=== PATIENT | female | born 1955 | race Caucasian/White ===

== ENCOUNTER 2017-11-07 21:49 | Emergency (ER) | payer OTHER ==
[~2017-11-07] VITALS: Ht 160 cm; Wt 90.7 kg
[~2017-11-07 21:49] MED LIST: ALBUTEROL2.5 MG/31 INH; AMBIEN5 MG PO; AMOXICILLIN500 M1 PO; ANTIVERT25 MG PO; ASPIR 8181 MG; ASPIR 8181 MG PO; AUGMENTIN 875875 MG PO; CIPRO PO; CRESTOR10 MG PO; FLAGYL500 MG PO; FLEXERIL; HYDROCODONE-AP1 EAC6; HYDROXYCHLOROQ200 M1 PO; LEVOTHROID PO; LOPRESSOR25 PO; LOVASTATIN 20 M20 MG PO; MEDROLDOSEPACK PO; NAPROSYN500 MG PO; PAXIL10 MG; PREDNISONE50 MG PO; PRINIVIL20 MG; PROAIR HFA8.5 GM IH; PROMETH-CODEIN 65 ML PO; PROMETHAZINE D480 ML PO; PROMETHAZINE-C120 ML PO; TESSALON PERLE100 MG PO; VERAPAMIL HCL120 M1 PO; VITAMIN D1000 UNI1 PO; ZOCOR40 MG; ZPAK PO; [UNRECOGNIZED DRUG - OTHER]
[2017-11-07] MEDS ORDERED: FLEXERIL (22:07)
[2017-11-07] MEDS ORDERED: NORCO 5-325 TA1 EACH PO (22:08)
[2017-11-07] MEDS ORDERED: HYDROCODONE-ACE15 ML PO (22:58)
[2017-11-07 23:20] VITALS: BP 142/67
== END 2017-11-07 23:15 | disposition home or self-care (01) ==
LOC: M.ERS 21:49
DX: J06.9 Acute upper respiratory infection, unspecified (principal); I10 Essential (primary) hypertension; K21.9 Gastro-esophageal reflux disease without esophagitis; M19.90 Unspecified osteoarthritis, unspecified site; M79.7 Fibromyalgia; G25.81 Restless legs syndrome; E78.00 Pure hypercholesterolemia, unspecified; J44.9 Chronic obstructive pulmonary disease, unspecified; F32.9 Major depressive disorder, single episode, unspecified; Z91.041 Radiographic dye allergy status

== ENCOUNTER 2018-01-18 18:34 | Inpatient (IN) | payer OTHER ==
[~2018-01-18] VITALS: Ht 160 cm; Wt 83.9 kg
[~2018-01-18 18:34] MED LIST changes: +FLEXERIL PO; +HYDROCODONE-ACE15 ML PO; -LEVOTHROID PO; +NORCO 5-325 TA1 EACH PO; -PRINIVIL20 MG; +PRINIVIL20 MG PO; +SYNTHROID50 MCG PO
[2018-01-18 18:37] VITALS: BP 143/108
[2018-01-18 19:15] LABS: ABSOLUTE BASOPHILS 0.1 thou/uL (0.0-0.2); ABSOLUTE LYMPHOCYTES 2.3 thou/uL (0.8-5.3); ABSOLUTE MONOCYTES 0.9 thou/uL (0.0-1.2); ABSOLUTE NEUTROPHILS 6.8 thou/uL (1.6-8.1); BASOPHILS 1.5 %; EOSINOPHILS 0.4 %; HEMATOCRIT 35.4 % (37.0-47.0); HEMOGLOBIN 11.8 gm/dL (12.0-15.0); LYMPHOCYTES 22.4 %; MCH 28.7 pg (26.0-34.0); MCHC 33.2 g/dL (28.0-37.0); MCV 86.3 fL (80.0-100.0); MONOCYTES 8.7 %; MPV 7.8 fl. (7.2-11.1); NUCLEATED RBCS 0 /100WBC; PLATELET COUNT* 291 thou/uL (150-400); RDW-CV 14.9 % (10.5-14.5); WBC 10.1 thou/uL (4.0-11.0)
[2018-01-18 19:22] LABS: CALCIUM 9.5 mg/dL (8.5-10.1); POTASSIUM 3.5 mmol/L (3.5-5.1)
[2018-01-18 19:24] LABS: INR 1.1; PROTIME 10.9 Seconds (9.20-11.50)
[2018-01-18 19:33] LABS: ALBUMIN 3.6 g/dL (3.4-5.0); TOTAL BILIRUBIN 0.4 mg/dL (<0.1-1.0); TOTAL PROTEIN 8.1 g/dL (6.4-8.2); TROPONIN-I LEVEL 0.35 ng/mL (<0.06)
[2018-01-18 20:50] VITALS: BP 123/76
[2018-01-18 21:00] VITALS: BP 108/75
[2018-01-18] MEDS ORDERED: PROZAC20 MG PO (23:08)
[2018-01-19] VITALS: BP 129/69
--- NOTE | 2018-01-19 03:50 | NUR ---
PT ARRIVED FROM ER AROUND 2100. ASSESSMENT COMPLETED CHARTED. ABLE TO MAKE NEEDS KNOWN. PT AT BEDSIDE DURING ADMISSION BUT WENT HOME SHORTLY AFTER. MEDS RESTARTED, PAPERWORK SIGNED, AND ADMISSION COMPLETED. PT RESTING ON AND OFF, C/O SLIGHT CHEST PRESSURE. 2L OF O2 ON. NPO AT MIDNIGHT FOR CARDIOLOGY CONSULT. WILL CONTINUE TO MONITOR.
[2018-01-19 04:00] VITALS: BP 104/60
[2018-01-19 08:00] VITALS: BP 109/51
--- NOTE | 2018-01-19 15:38 | EKG ---
[place] [address] ELECTROCARDIOGRAM REPORT Name: ROSANGELA STERN Room: [address] ADM IN M.R.#: [id number] Admission: 01/18/18 Attend Phys: Tashia Vasquez Discharge: Date of : 57 Report #: [id number] THIS REPORT FOR: //name// [facility] ED Test Date: 2018-01-18 Test Time: 18:40:19 Pat Name: ROSANGELA STERN Department: Room: [facility] Gender: F Customer Engagement Representative: POPPY : 1955 Requested By: Edward Solis Order Number: [id number] MD: Hai Do Measurements Intervals Eldridge Rate: 81 P: -17 IN: 111 QRS: 75 QRSD: 119 T: 122 QT: 455 QTc: 529 Interpretive Statements Sinus rhythm Borderline short IN interval Repol abnrm, severe global ischemia (LM/MVD) Compared to ECG 10/11/2016 09:40:45 Early repolarization now present Possible ischemia now present T-wave abnormality no longer present Electronically Signed On 01-19-2018 15:38:49 EVALUATION ANALYST by Hai Do [email or web address] <ELECTRONICALLY SIGNED> By: Hai Do MD, FACC 01/19/18 1538 1840 1840 Hai Do MD, FACC /EPI
[2018-01-19 16:00] VITALS: BP 126/65
--- NOTE | 2018-01-19 16:45 | NUR ---
PT SOMEWHAT PROGRESSING TOWARDS THIS SHIFT. CARDIOLOGY CONSULTED AND ANTICIPATE CARDIAC CATH TOMORROW. ECHO TO BE COMPLETED. PT HAS TOLERATED REGULAR DIET SINCE CARDIOLOGY CONSULT. WILL BE NPO AFTER MIDNIGHT FOR CATH PROCEDURE TOMORROW. PULMONOLOGY CONSULTED THIS SHIFT. CT CHEST OBTAINED, REFER TO RESULTS. PT STARTED ON IV ABTS. NO OTHER CONCERNS AT THIS TIME. CLWR. WCTM.
[2018-01-19 19:45] VITALS: BP 137/67
[2018-01-19 22:05] LABS: GLYCOHEMOGLOBIN (HGB A1C) 5.3 % (4.8-5.6)
[2018-01-20] VITALS (14 sets, daily range): BP systolic 104–134; BP diastolic 51–84
--- NOTE | 2018-01-20 04:27 | NUR ---
PT RESTED WELL. PAIN RELIEVED WITH TYLENOL WITH GOOD RESULT. PT REPORTS SOME WEAKNESS. PLANS FOR CATH PROCEDURE TODAY. REMAINS SR ON MONITOR. LUNGS ARE COURSE WITH NON PRODUCTIVE COUGH. PT IS ON RA. VSS. ASSESSMENT UNCHANGED. HAS REMAINED NPO SINCE MN. SAFETY PRECAUTIONS IN PLACE. CALL LIGHT IN REACH. PERFORMED HOURLY ROUNDING. WILL CONT TO MONITOR.
[2018-01-20 04:58] LABS: HEMATOCRIT 31.8 % (37.0-47.0); HEMOGLOBIN 10.7 gm/dL (12.0-15.0); MCH 28.9 pg (26.0-34.0); MCHC 33.5 g/dL (28.0-37.0); MCV 86.2 fL (80.0-100.0); MPV 8.3 fl. (7.2-11.1); RBC 3.69 mil/uL (4.20-5.00); RDW-CV 14.7 % (10.5-14.5); WBC 8.8 thou/uL (4.0-11.0)
[2018-01-20 05:56] LABS: ANION GAP 18 mmol/L (7-16); BUN 18 mg/dL (7-18); CALCIUM 9.6 mg/dL (8.5-10.1); CHLORIDE 100 mmol/L (98-107); CHOLESTEROL 162 mg/dL (<200); CO2 19 mmol/L (21-32); CREATININE 0.8 mg/dL (0.6-1.3); GLUCOSE 123 mg/dL (70-99); HDL CHOLESTEROL 73 mg/dL (>40); LDL CHOLESTEROL 76 mg/dL (<100); MAGNESIUM 2.1 mg/dL (1.8-2.4); POTASSIUM 4.1 mmol/L (3.5-5.1); SODIUM 137 mmol/L (136-145); TC:HDL 2.2 Ratio (Not establshd); TRIGLYCERIDE 66 mg/dL (<150); VLDL 13 mg/dL (<40)
[2018-01-20 05:58] LABS: SERUM ASSESSMENT CLEAR
--- NOTE | 2018-01-20 09:20 | NUR ---
PT TO HEEL LINING PASTER VIA CART. PREMEDICATION FOR IODINE ALLERGY GIVEN
--- NOTE | 2018-01-20 10:12 | CON ---
[address] [address] CONSULTATION Name: LEENAROSANGELA Won Room: [address] IN .R.#: [id number] Admission: 01/18/18 Attend Phys: Tashia Vasquez Discharge: Date of : 57 Report #: [id number] THIS REPORT FOR: //name// CC: AKTHY physician/PCP Evonne Barbosa TYPE OF REPORT: Cardiology consultation. INDICATION: Xqp-XM-enxzffbia myocardial infarction. HISTORY OF PRESENT ILLNESS: The patient is a very pleasant 62-year-old white female with no prior cardiac history. She has cardiac risk factors including hypertension, dyslipidemia and strong family history of premature atherosclerotic coronary artery disease. Yesterday, she had midsternal chest discomfort radiating to the back and left arm, lasting approximately one hour after minimal exertion. She was admitted to hospital where it is noted that her troponins have been slightly elevated. EKG did not show acute ST elevation. The patient was placed on appropriate medications and her chest pain has resolved. She is not currently having any chest pain. She denies shortness of breath. PAST MEDICAL HISTORY: 1. Hypertension. 2. Dyslipidemia. 3. GERD. 4. Arthritis. 5. DJD. 6. Fibromyalgia. 7. Chronic fatigue syndrome. 8. Asthma. 9. Chronic bronchitis. 10. COPD. 11. Depression. FAMILY HISTORY: Positive for coronary artery disease. SOCIAL HISTORY: The patient is a lifelong nonsmoker. She does not drink alcohol. MEDICATIONS: Levothyroxine 50 mcg daily, metoprolol tartrate 50 mg b.i.d., Plaquenil 200 mg b.i.d., lisinopril 20 mg daily, lovastatin 20 mg daily, aspirin 81 mg daily, Flexeril 10 mg daily, Boaz 5/325 one tablet q. 4 hours p.r.n. and Prozac 20 mg daily. ALLERGIES: [place] [address] CONSULTATION Name: ROSANGELA STERN Room: [address]#: [id number] Admission: 01/18/18 Attend Phys: Tashia Vasquez Discharge: Date of : 57 Report #: [id number] REVIEW OF SYSTEMS: CONSTITUTIONAL: Positive for generalized weakness without focal paralysis. She denies any unexplained weight loss or fever. RESPIRATORY: She has chronic bronchitis with cough and chronic shortness of breath. CARDIOVASCULAR: As outlined above. She denies any history of edema or heart murmur. GASTROINTESTINAL: She has GERD. She denies ulcers. She denies hematemesis, melena or hematochezia. GENITOURINARY: She has no dysuria or hematuria. HEMATOLOGIC AND LYMPHATIC: No history of anemia or bleeding disorder or cancer. ALLERGY AND IMMUNOLOGIC: She has medical allergies outlined above. PSYCHIATRIC: She has mild depression. No anxiety. MUSCULOSKELETAL: She has arthritis and fibromyalgia. PSYCHIATRIC: She has depression. NEUROLOGICAL: She wears glasses. She has no acute loss in vision. She denies epistaxis. PHYSICAL EXAMINATION: VITAL SIGNS: Stable. Blood pressure 109/51 and pulse 65 and regular. GENERAL: This is a pleasant female, in no distress. Mood and affect appropriate. HEENT: Extraocular muscles intact. Mucous membranes moist. NECK: Shows no jugular venous distention. There are no carotid bruits. CHEST: Reveals clear lung jacobson without wheezes, rales or rhonchi. CARDIOVASCULAR: Reveals a regular rhythm with normal S1 and S2. I do not appreciate gallop or murmur exams. ABDOMEN: Reveals normal bowel sounds. The abdomen is soft and nontender. EXTREMITIES: Shows no edema. Peripheral pulses palpable. SKIN: Warm and dry. LABORATORY DATA: Labs are evaluated. Basic metabolic profile is within normal limits. Troponin on admission was 0.35 and subsequently 0.39 and 0.25. IMPRESSION AND RECOMMENDATIONS: 1. Mca-AD-fpuqbftnp myocardial infarction. We will continue heparin drip. Continue low-dose beta rashi, continue statin and plan for cardiac catheterization to further define her coronary anatomy. 2. Dyspnea, likely due to chronic lung disease. We will obtain echocardiogram to evaluate cardiac function. 3. Hypertension. Blood pressure [place] [address] CONSULTATION Name: ROSANGELA STERN Won Room: [address] IN [facility]#: [id number] Admission: 01/18/18 Attend Phys: Tashia Vasquez Discharge: Date of : 57 Report #: [id number] 4. Hyperlipidemia. We will check fasting lipid profile and likely adjust her lipid lowering medication. <ELECTRONICALLY SIGNED> By: Hai Do MD, FACC 01/20/18 1012 1223 [id number] Do MD, FACC /nt
--- NOTE | 2018-01-20 12:22 | NUR ---
MET WITH PT TO DISCUSS HOME SITUATION/DC PLANNING. PT LIVES WITH SPOUSE. SHE IS NORMALLY INDEPENDENT AND ACTIVE, UP UNTIL A MONTH AGO, WAS GETTING OUT DAILY, DOING WT WATCHERS AND WALKING. SHE REPORTS BEING SICK FOR ABOUT A MONTH, FEELS WEAK AND WORRIED SHE MAY NEED A WALKER. PT USES NO EQUIPMENT, HASN'T HAD HH OR BEEN TO SNF. PT AND SPOUSE ARE BOTH DISABLED BUT INDEPENDENT. SPOUSE IS ABLE TO ASSIST NEEDED. WILL FOLLOW AND ASSIST WHEN NEEDS MORE CLEAR.
--- NOTE | 2018-01-20 14:31 | NUR ---
Nutrition: Consult received for "malnutrition." Pt weighs 180# - used to weigh ~200#, but has lost 15# since Oct. BMI: 33. Albumin is 3.6. H/o HTN, anemia. Pt may need a walker at disch. Unsure of po intake today, but does not appear to meet criteria for malnutrition at this time. Mild risk.
--- NOTE | 2018-01-20 14:42 | 2DMMODE ---
[place] [address] 2 D/M-MODE ECHOCARDIOGRAM Name: LEENAROSANGELA L Room: [address] IN M.R.#: [id number] Admission: 01/18/18 Attend Phys: Evonne Barbosa Discharge: Date of : 57 Date of Service: 01/20/18 1442 Report #: [id number] THIS REPORT FOR: //name// APPROVED REPORT Study performed: 01/20/2018 10:46:37 EXAM: Comprehensive 2D, Doppler, and color-flow Echocardiogram Patient Location: Bedside BSA: 1.84 HR: 76 bpm Other Information Study Quality: Good Indications Non STEMI 2D Dimensions IVSd: 9.59 (7-11mm) LVOT Diam: 20.90 (18-24mm) LVDd: 50.99 mm PWd: 8.34 (7-11mm) Ascending Ao: 28.52 (22-36mm) LVDs: 35.27 (25-40mm) Aortic Root: 27.00 mm Volumes Left Atrial Volume (Systole) LA ESV Index: 33.00 mL/m2 Aortic Valve AoV Peak Melvin.: 1.63 m/s AO Peak Gr.: 10.62 mmHg LVOT Max P.82 mmHg AO Mean Gr.: 6.31 mmHg LVOT Mean P.14 mmHg LVOT Max V: 1.31 m/s AO V2 VTI: 32.33 cm LVOT Mean V: 0.81 m/s CINDI (VTI): 2.67 cm2 LVOT V1 VTI: 25.13 cm Mitral Valve E/A Ratio: 0.84 MV Decel. Time: 169.90 ms MV E Max Melvin.: 1.00 m/s MV PHT: 49.27 ms MVA (PHT): 4.47 [place]2 [place] [address] 2 D/M-MODE ECHOCARDIOGRAM Name: ROSANGELA STERN Room: [address] IN .R.#: [id number] Admission: 01/18/18 Attend Phys: Evonne Barbosa Discharge: Date of : 57 Date of Service: 01/20/18 1442 Report #: [id number] TDI E/Lateral E': 10.00 E/Medial E': 8.33 Medial E' Melvin.: 0.12 m/s Lateral E' Melvin.: 0.10 m/s Pulmonary Valve PV Peak Melvin.: 1.05 m/s PV Peak Gr.: 4.37 mmHg Tricuspid Valve RAP Estimate: 5.00 mmHg TR Peak Gr.: 30.52 mmHg RVSP: 35.52 mmHg PA Pressure: 35.52 mmHg Left Ventricle The left ventricle is normal size. There is normal LV segmental wall motion. There is normal left ventricular wall thickness. Left ventricular systolic function is normal. The left ventricular ejection fraction is within the normal range. LVEF is 55-60%. Right Ventricle The right ventricle is normal size. The right ventricular systolic function is normal. Atria Left atrium is mildly dilated. The right atrium size is normal. Aortic Valve The aortic valve is normal in structure. No aortic regurgitation is present. There is no aortic valvular stenosis. Mitral Valve The mitral valve is normal in structure. Mild mitral regurgitation. No evidence of mitral valve stenosis. Tricuspid Valve The tricuspid valve is normal in structure. Trace tricuspid regurgitation. estimated pa pressure 30 mm hg Pulmonic Valve Pulmonic valve is not well visualized. There is no pulmonic valvular regurgitation. Great Vessels The aortic root is normal in size. IVC [place] [address] 2 D/M-MODE ECHOCARDIOGRAM Name: ROSANGELA STERN Room: [address] IN [facility]#: [id number] Admission: 01/18/18 Attend Phys: Evonne Barbosa Discharge: Date of : 57 Date of Service: 01/20/18 1442 Report #: [id number] collapses >50% with inspiration. Pericardium There is no pericardial effusion. <Conclusion> LVEF is 55-60%. Left atrium is mildly dilated. Trace tricuspid regurgitation. estimated pa pressure 30 mm hg <ELECTRONICALLY SIGNED> By: Ti Carrasquillo MD, FACC 01/20/181441 41 41 Ti Carrasquillo MD, FACC /INF
--- NOTE | 2018-01-20 16:33 | NUR ---
PT HAD CARDIAC CATH THIS AM. DOING WELL AFTER PROCEDURE-NO BLEEDING. UP IN ROOM WITH SB ASSIST. NSR. DENIES CP OR SOA. IVF INFUSING. TOLERATING PO WELL. FAMILY AT BS AND UPDATED ON PLAN OF CARE
--- NOTE | 2018-01-20 17:46 | CARD ---
[address] [address] CARDIAC CATH REPORT Name: ROSANGELA STERN Room: [facility] IN .R.#: [id number] Admission: 01/18/18 Attend Phys: Tashia Vasquez Discharge: Date of : 57 Report #: [id number] THIS REPORT FOR: //name// APPROVED REPORT Study performed: 01/20/2018 08:24:53 Patient Details Patient Status: In-Patient Room #: 229 The patient is a 62 year-old female Event Personnel Ti Carrasquillo Athletic Equipment Manager, Carol Ann Hoang RN Marketing Officer, Lupe Agudelo RTR Monitor, Corinne Redd Scrub Indication Dyspnea, Chest pain Risk Factors Hypercholesterolemia Admission/Lab Medications/Medications given during procedure Heparin Unfract. Procedure Narrative The patient was brought electively to the Cardiac Catheterization Laboratory and was prepped and draped in a sterile manner. The right wrist was infiltrated with 2% Lidocaine subcutaneous anesthesia. A Slender Glidesheath sheath was inserted into the right radial artery. Coronary angiography was performed using coronary diagnostic catheters. The right coronary system was accessed and visualized with a Diagnostic 5Fr JR4 catheter. The left coronary system was accessed and visualized with a Diagnostic 5Fr JL3.5 catheter. The left ventricle was accessed and visualized with a Diagnostic 5Fr angled pigtail catheter. Left ventricular/Aortic Valve gradient assessed via catheter pullback. Left ventriculogram was performed in NIX projection. Closure device was deployed with a 6 Fr Vasc-Band Reg 24cm. The patient tolerated the procedure well and there were no complications associated with the procedure. There was no hematoma. Intraoperative Conscious Sedation Sedation start time: 924 Case end Time: [address] [place] [address] CARDIAC CATH REPORT Name: LEENAROSANGELA Room: [address]#: [id number] Admission: 01/18/18 Attend Phys: Tashia Vasquez Discharge: Date of : 57 Report #: [id number] Versed 2 mg Fluoro Time: 3.9 minutes Dose: DAP 31415 cGycm2 60.1 mGy Contrast Type and Amount: Visipaque 100 ml Coronary Angiography The patient's coronary anatomy is right dominant. [place] Artery Percent Stenosis Left Main: 0 % Prox LAD: 0 % Mid/Distal LAD: 0 % Circumflex: 0 % RCA: 0 % Ramus: % Left Ventriculography The left ventricle is normal in size with normal contractility. The left ventricular ejection fraction is estimated to be 60-65%. Left ventricular wall motion abnormalities are not present. There is no mitral insufficiency. Hemodynamics The aortic pressure is 110/59 mmHg with a mean of 81 mmHg. [place] [address] mmHg with a mean of mmHg. The left ventricular end diastolic pressure is 17 mmHg. There was no gradient across the aortic valve upon pullback. Pullback from the left ventricle to the aorta revealed no gradient across the aortic valve. Conclusion 1. normal coronary arteries 2. normal LV function Recommendations Aggressive Medical Therapy <ELECTRONICALLY SIGNED> By: Ti Carrasquillo MD, FACC 01/20/18 174 45 174Danichole Carrasquillo MD, FACC /INF
[2018-01-21 00:04] VITALS: BP 91/43
[2018-01-21 04:00] VITALS: BP 111/50
[2018-01-21 04:53] LABS: HEMATOCRIT 27.9 % (37.0-47.0); HEMOGLOBIN 9.5 gm/dL (12.0-15.0); MCH 29.4 pg (26.0-34.0); MCV 86.6 fL (80.0-100.0); MPV 8.6 fl. (7.2-11.1); RBC 3.22 mil/uL (4.20-5.00); RDW-CV 15.1 % (10.5-14.5); WBC 16.7 thou/uL (4.0-11.0)
[2018-01-21 05:16] LABS: CALCIUM 9.2 mg/dL (8.5-10.1); CREATININE 0.8 mg/dL (0.6-1.3); POTASSIUM 3.4 mmol/L (3.5-5.1)
--- NOTE | 2018-01-21 07:57 | NUR ---
PT IS ABLE TO COMMUNICATE HER NEEDS TO STAFF EFFECTIVELY. CURRENT PAIN MEDICATION REGIMEN HAS BEEN ADEQUATE FOR CONTROLLING HER PAIN UP TO THIS TIME. RIGHT RADIAL CATH SITE BANDAID IS C/D/I, NO OBSERVABLE EVIDENCE FOR A HEMATOMA. WBC COUNT IS UP THIS AM VERSUS PREVIOUS DAYS. POSSIBLE DISCHARGE LATER TODAY.
--- NOTE | 2018-01-21 07:59 | CON ---
[address] [address] CONSULTATION Name: ROSANGELA STERN Won Room: [address] IN M.R.#: [id number] Admission: 01/18/18 Attend Phys: Tashia Vasquez Discharge: Date of : 57 Report #: [id number] THIS REPORT FOR: //name// CC: Ti Carrasquillo MD [facility] Ti Solis NP DATE OF SERVICE: 01/20/2018 PULMONARY CONSULTATION ATTENDING PHYSICIAN: Roger Ferrera M.D. PATIENT LOCATION: The patient is located in room 229. INDICATION FOR CONSULTATION: COPD, dyspnea and infiltrates. HISTORY OF PRESENT ILLNESS: The patient is a 62-year-old female, nonsmoker, history of asthma and COPD for the past several years, just on short-acting bronchodilators, presented to the Emergency Room Department yesterday for increasing dyspnea. The patient was dyspneic at rest. She was dyspneic walking across her apartment room and states she has not been able to walk up and down a flight of stairs in about 4-6 weeks. She states 2 months ago, she was fine and had good exercise tolerance. She complains of some dry cough and wheeze associated with this. She has tried using her Ventolin inhaler, without much improvement. She is not on any nebulizers at home. She has not been on any inhaled steroids or long-acting cholinergics, such as Anoro or Stiolto, etc. She is not on any oxygen. She has been on CPAP for the past year or so for obstructive sleep apnea. We are still awaiting her sleep study from [facility]. There is a question whether she had pneumonia 2 months ago and it was treated somewhere else. She feels like she has never really recovered from that. Also, Cardiology just finished doing a cardiac catheterization. Her vessels were fine. It appears her EF was 60% to 65% and LVEDP was normal at 15 mm. There was no heart failure. PAST MEDICAL HISTORY: She has a history of mwnlw-cb-perezcz bronchitis. She has had sinusitis and allergic rhinitis, had multiple sinus problems and sinus infections. She complains of gastroesophageal reflux disease and dysphagia at times. She has also had some arthritis and was on Plaquenil for that; not certain of the exact diagnosis for that. ALLERGIES: SHE HAS ALLERGIES OR INTOLERANCES TO IODINE AND CONTRAST DYE. MEDICATIONS: Her outpatient medications included levothyroxine 50 mcg daily, [place] [address] CONSULTATION Name: ROSANGELA STERN Room: [address]#: [id number] Admission: 01/18/18 Attend Phys: Tashia Vasquez Discharge: Date of : 57 Report #: [id number] metoprolol 25 mg daily, lisinopril 20 mg daily for hypertension, fluoxetine 20 mg daily, lovastatin 20 mg daily for Mevacor, hydroxychloroquine was 200 mg twice daily and aspirin was 81 mg daily. Currently, she is on oral azithromycin 500 mg daily and cefdinir or Omnicef 300 mg b.i.d. Solu-Medrol 62.5 mg IV push every 8 hours was just added yesterday. She received some nitrates and morphine for chest pain, also still was on lisinopril 20 mg daily. Budesonide Respules were added 0.5 mg b.i.d. as well as ceftriaxone was given 1 dose. FAMILY HISTORY: Positive for coronary artery disease. SOCIAL HISTORY: The patient lives by herself in [place], [place]. She has an ex- who also checks in on her and daughter also checks in on her. Further on social history, she is a lifetime nonsmoker. Denies any alcohol or illicit drug use. 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 She did work at the [employer]. She did not have any asbestos exposure and they were not working on the [employer] at that time. REVIEW OF SYSTEMS: Other 14-point review of systems reviewed and negative, except for pertinent positives noted in the HPI. She noted she has had some obstructive sleep apnea and restless legs syndrome in the past, also some chronic fatigue syndrome and fibromyalgia in the past. Also had mild hyperlipidemia as well as her COPD and asthma and depression. PHYSICAL EXAMINATION: GENERAL: This is a pleasant 62-year-old female how has just come up from her cardiac catheterization; they had the right radial approach. VITAL SIGNS: Her blood pressure is stable at 134/72, heart rate is 88 and respirations 16. Her room air sat is 95%. She is 5 feet 3 inches tall, weight is 84 kilograms and BMI is 33. HEENT: Unremarkable. She has mild nasal septal deviation to the right. Some nasal congestion is noted. Pharynx is clear. Mouth is not narrowed. She has a Mallampati score of 1. NECK: Supple, without nodes. No increase in jugular venous pressure. She does not have redundant neck tissue. CHEST: Shows bibasilar crackles, occasional end-expiratory wheeze and moderately prolonged expiratory phase. No use of accessory muscles noted. CARDIOVASCULAR: Regular rate and rhythm, without murmur, gallop or rub. Heart rate is 88. ABDOMEN: Obese without masses or megaly. EXTREMITIES: No calf tenderness. No cyanosis, clubbing or edema. NEUROLOGIC: Grossly intact. Again, I did not move her right arm much since she had a right radial approach to her catheterization. LABORATORY DATA: Labs from today, 01/20/2018, hemoglobin is 11, white count [facility] [address] [place] [address] CONSULTATION Name: ROSANGELA STERN Room: [address] IN [facility]#: [id number] Admission: 01/18/18 Attend Phys: Tashia Vasquez Discharge: Date of : 57 Report #: [id number], normal differential and platelets are 267,000. Sodium is 137, potassium is 4.1, bicarbonate is 19, anion gap is 18 and glucose is 123. Troponin mildly elevated. Cholesterol was elevated at 162, HDL was 73 and LDL was 76. Chest x-ray showed possibly some patchy lower lobe infiltrates. High-resolution CT of the chest again showed diffuse ground-glass infiltrates, unlike she had some ground-glass infiltrates in her lower lungs and maybe some mosaic pattern to that. No severe hyperinflation was noted, no pulmonary artery hypertension was noted and no septations. No honeycomb changes were noted by me on my review. No significant interstitial lung disease was noted. IMPRESSION: 1. Dyspnea, multifactorial, probably related to undertreated obstructive airways disease, could have early interstitial lung disease and also untreated or undertreated obstructive sleep apnea. 2. Obstructive sleep apnea with restless leg syndrome, on home CPAP. 3. Atypical chest pain. Cardiac catheterization appears negative. 4. Hypertension. 5. Hyperlipidemia. PLAN: We will keep her on her steroids. She may probably need some home nebulizer treatments. We will do a room air exercise oximetry on her tomorrow to see if she desaturates. She does have some dry Velcro rales on exam. She could have some early interstitial lung disease. Full PFTs as an outpatient in 3-4 weeks would be helpful, and again, we will see what the exercise oximetry shows to make sure she does not need supplemental oxygen at home. We will see if we can improve on her dyspnea. If her PFTs show moderately severe obstructive or restrictive defect, then pulmonary rehabilitation should be considered and again, possibly outpatient bronchoscopy might be considered at some point in time. No need for supplemental oxygen at home at this time. I told her she can bring her CPAP machine and we will go from there. Thanks again for allowing us to participate in this lady's care. We will follow up along with you while she is in the hospital. Happy to see her as an outpatient. <ELECTRONICALLY SIGNED> By: Wang Miranda MD 01/21/18 0759 1106 [id number] Miranda MD /singh
[2018-01-21 08:15] VITALS: BP 107/58
--- NOTE | 2018-01-21 08:15 | NUR ---
ASSUMED PT. CARE AND RECEIVED REPORT AT 0730. PT A/OX4, VSS, MONITOR ON TRACING SR. PT. REPORTS PAIN TO BACK. ON RA @ 96%. PT. REPORTS FEELING BETTER WITH HER BREATHING, BUT STILL SOA WITH ACTIVITY. FULL ASSESSMENT COMPLETED, REFER TO CHARTING. RIGHT WRIST CATH SITE WNL. CALL LIGHT IN REACH, WILL CONTINUE WITH PLAN OF CARE.
[2018-01-21 11:23] VITALS: BP 98/45
[2018-01-21 15:24] VITALS: BP 111/60
[2018-01-21 19:45] VITALS: BP 116/64
[2018-01-22] VITALS: BP 117/60
[2018-01-22 04:00] VITALS: BP 111/75
--- NOTE | 2018-01-22 06:04 | NUR ---
PT IS ABLE TO COMMUNICATE HER NEEDS TO STAFF EFFECTIVELY. CURRENT PAIN MEDICATION REGIMEN HAS BEEN ADEQUATE FOR CONTROLLING HER PAIN UP TO THIS TIME. PT HAS BEEN REFUSING BREATHING TREATMENTS TONIGHT; SHE STATES THAT THEY CAUSE HER TO HAVE PAIN IN HER CHEST AND UPPER EXTREMITIES. VERY LIKELY DISCHARGE TODAY.
[2018-01-22 08:26] VITALS: BP 141/87
--- NOTE | 2018-01-22 08:27 | NUR ---
ASSUMED PT. CARE AND RECEIVED REPORT AT 0730. PT A/OX4, VSS, MONITOR ON TRACING ST. PT. ASSISTED TO BATHROOM WITH STBY. STEADY DURING AMBULATION, BUT SLOW. PT. ABLE TO STAND AND SIT FROM TOILET BYSELF. ON RA @ 95%. DOES HAVE SOME NOTED SOB WITH ACTIVITY. PT. REPORTS FEELING LIKE SHE IS HAVING SOME "MOVEMENT" WITH COUGH TODAY. PT. ALSO REPORTS CP FOR APPROX. 1 HOUR AFTER RECEIVING BREATHING TREATMENTS. PT. REPORTS THIS HAS BEEN GOING ON SINCE SHE STARTED GETTING THEM, BUT DID NOT REPORT UNTIL TODAY. UP TO CHAIR FOR BREAKFAST, CALL LIGHT IN REACH. PT. ENCOURAGED TO US I.S HOURLY AND FLUTTER VALVE. WILL CONTINUE WITH PLAN OF CARE.
[2018-01-22 12:00] VITALS: BP 134/78
[2018-01-22] MEDS ORDERED: CEFDINIR300 MG PO (13:14)
[2018-01-22] MEDS ORDERED: VENTOLIN HFA 1818 GM INH (13:14)
[2018-01-22] MEDS ORDERED: SYMBICORT160 MCG/4. INH (13:14)
[2018-01-22] MEDS ORDERED: PREDNISONE 10 M10 MG PO (13:14)
[2018-01-22 13:59] VITALS: BP 134/78
--- NOTE | 2018-01-22 14:00 | NUR ---
ORDERS NOTED FOR DC. PER JESSICA CHAUHAN ORDER FOR NEBULIZER CANCELED. PT DOES NEED HH. DISCUSSED OPTIONS AND PT CHOSE [facility]. CALLED AND FAXED REFERRAL TO [facility]. PT DENIES OTHER NEEDS
--- NOTE | 2018-01-22 17:10 | NUR ---
DC ORDERS RECEIVED. IV AND MONITOR REMOVED. PT. GIVEN DC INSTRUCTIONS, SCRIPTS, AND CARENOTES. ALL QUESTIONS ANSWERED AND VERBALIZED UNDERSTANDING. PT. LEFT VIA WHEELCHAIR TO RETURN HOME IN PERSONAL VEHICLE. ALL BELONGINGS ACCOUNTED FOR.
== END 2018-01-22 17:20 | disposition home health service (06) | DRG 177 ==
LOC: M.ERS 18:34 → M.TBA-ER 19:52 → M.2W 19:52
PROVIDERS: Emergency Medicine; Internal Medicine; ADMIT Internal Medicine
PROC: B2111ZZ Fluoroscopy of Multiple Coronary Arteries using Low Osmolar Contrast (ICD-10-PCS; principal; 2018-01-20)
PROC: B2151ZZ Fluoroscopy of Left Heart using Low Osmolar Contrast (ICD-10-PCS; principal; 2018-01-20)
PROC: 4A023N7 Measurement of Cardiac Sampling and Pressure, Left Heart, Percutaneous Approach (ICD-10-PCS; principal; 2018-01-20)
DX: J15.6 Pneumonia due to other Gram-negative bacteria (principal); I21.4 Non-ST elevation (NSTEMI) myocardial infarction; J44.1 Chronic obstructive pulmonary disease with (acute) exacerbation; J44.0 Chronic obstructive pulmonary disease with (acute) lower respiratory infection; I25.110 Atherosclerotic heart disease of native coronary artery with unstable angina pectoris; I10 Essential (primary) hypertension; K21.9 Gastro-esophageal reflux disease without esophagitis; M19.90 Unspecified osteoarthritis, unspecified site; M79.7 Fibromyalgia; G47.33 Obstructive sleep apnea (adult) (pediatric); G25.81 Restless legs syndrome; E78.5 Hyperlipidemia, unspecified; D64.9 Anemia, unspecified; M32.9 Systemic lupus erythematosus, unspecified; F32.9 Major depressive disorder, single episode, unspecified; Z79.82 Long term (current) use of aspirin; Z79.899 Other long term (current) drug therapy; Z91.041 Radiographic dye allergy status; Z82.49 Family history of ischemic heart disease and other diseases of the circulatory system

== ENCOUNTER → 2018-03-06 | Outpatient (CLI) | payer OTHER ==
[~2018-03-06] MED LIST changes: +CEFDINIR300 MG PO; +PREDNISONE 10 M10 MG PO; +PROZAC20 MG PO; +SYMBICORT160 MCG/4. INH; +VENTOLIN HFA 1818 GM INH
== END ==
LOC: M.RAD 15:22
DX: J06.9 Acute upper respiratory infection, unspecified (principal); R06.02 Shortness of breath; R06.2 Wheezing; R05 Cough

== ENCOUNTER → 2018-04-24 | Outpatient (CLI) | payer OTHER | LOC: M.ULTRA 08:42 | DX: Z12.31 Encounter for screening mammogram for malignant neoplasm of breast (principal); D25.9 Leiomyoma of uterus, unspecified; N83.209 Unspecified ovarian cyst, unspecified side; R10.11 Right upper quadrant pain; R05 Cough ==

== ENCOUNTER → 2018-06-04 | Outpatient (CLI) | payer OTHER | LOC: M.ULTRA 05-20 11:38 | DX: I69.991 Dysphagia following unspecified cerebrovascular disease (principal); I69.920 Aphasia following unspecified cerebrovascular disease; J45.20 Mild intermittent asthma, uncomplicated; F41.9 Anxiety disorder, unspecified; Z88.5 Allergy status to narcotic agent; Z91.041 Radiographic dye allergy status; Z91.81 History of falling ==